=== PATIENT | female | born 1960 | race Caucasian/White ===

== ENCOUNTER 2017-12-09 16:45 | Emergency (ER) | payer MEDICAID ==
[2017-12-09 17:37] VITALS: BMI 30.7
[2017-12-09 17:39] VITALS: BP 115/72; PULSE 97; RESP 18; TEMP 98.7; O2SAT 99
[2017-12-09] MEDS ORDERED: Silver Sulfadiazine 1% Cream (20 gm) TOP STA (18:07)
[2017-12-09] MEDS ORDERED: Tdap Vaccine 0.5 ml Vial (10-64 yrs) IM ONE (18:08)
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
[2017-12-09] MEDS ORDERED: Silver Sulfadiazine 1% Cream (20 gm) ONE (18:19)
[2017-12-09] MEDS ORDERED: Tetanus/Diphtheria Toxoids 0.5 ml Syringe IM ONE (18:20)
== END 2017-12-09 18:32 | disposition home or self-care (01) ==
LOC: C.ER 16:45
DX: T22.211A Burn of second degree of right forearm, initial encounter (principal); X10.0XXA Contact with hot drinks, initial encounter; Y92.9 Unspecified place or not applicable; Z23 Encounter for immunization